=== PATIENT | male | born 1995 | race African-American/Black ===

== ENCOUNTER 2019-12-15 11:54 | Emergency (ER) | payer OTHER ==
[~2019-12-15] VITALS: Ht 182.9 cm; Wt 68.0 kg
[2019-12-15 13:37] VITALS: BP 126/84
[2019-12-15] MEDS ORDERED: NAPROSYN500 MG PO (13:52)
[2019-12-15] MEDS ORDERED: NORFLEX100 MG PO (13:52)
== END 2019-12-15 14:03 | disposition home or self-care (01) ==
LOC: ER 11:54
DX: S16.1XXA Strain of muscle, fascia and tendon at neck level, initial encounter (principal); S00.83XA Contusion of other part of head, initial encounter; M25.511 Pain in right shoulder; F17.210 Nicotine dependence, cigarettes, uncomplicated; F14.90 Cocaine use, unspecified, uncomplicated; Z98.890 Other specified postprocedural states; Y04.0XXA Assault by unarmed brawl or fight, initial encounter; Y93.89 Activity, other specified; Y92.89 Other specified places as the place of occurrence of the external cause; Y99.9 Unspecified external cause status